=== PATIENT | female | born 1985 | race Caucasian/White ===

== ENCOUNTER 2017-01-25 15:24 | Inpatient (IN) | payer OTHER ==
[2017-01-25 16:53] VITALS: BMI 26.9
--- NOTE | 2017-01-25 17:32 | HP ---
COWS - Scale Resting Pulse: 0= [place] 80 or Below Sweatin= Chills/Flushing Restless Observation: 3= Extraneous Movement Pupil Size: 0= Normal to Room Light Bone or Joint Aches: 4=Acute Joint/Muscle Pain Runny Nose/ Eye Tearin= Runny Nose/Eyes GI Upset > 30mins: 2= Nausea/Diarrhea Tremor Observation: 1= Tremor [place], Not Seen Yawning Observation: 1= 1-2x During Session Anxiety or Irritability: 2=Irritable/Anxious Goose Flesh Skin: 0=Smooth Skin COWS Score: 16 Admission [facility] Chief Complaint: OPIATE WITHDRAWAL SX Allergies/Adverse Reactions: Allergies Allergy/AdvReac Type Severity Reaction Status Date / Time sulfamethoxazole Allergy Severe Rash Verified 01/25/17 16:51 [From Bactrim] trimethoprim [From Bactrim] Allergy Severe Rash Verified 01/25/17 16:51 History of Present Illness: 31 Y/O H/FEMALE WITH A HX OF PERCOCET DEPENDENCE SEEKING DETOX TX. PT STATES IN THE BEGINING IT WAS RX BUT NOW SHE USES STREET OPIATES. Exam Limitations: No Limitations - Ebola screening Have you traveled outside of the country in the last 21 days: No Have you had contact with anyone from an Ebola affected area: No Have you been sick,other than usual withdrawal symptoms: No - Review of Systems Constitutional: Chills, Night Sweats, Changes in sleep EENT: reports: Blurred Vision, Tearing, Nose Congestion Respiratory: reports: Shortness of Breath (HX ASTHMA), Wheezing Cardiac: reports: No Symptoms Reported GI: reports: Diarrhea, Nausea, Vomiting : reports: No Symptoms Reported Musculoskeletal: reports: Back Pain, Joint Pain, Muscle Pain Integumentary: reports: No Symptoms Reported Neuro: reports: Headache, Dizziness Endocrine: reports: No Symptoms Reported Hematology: reports: No Symptoms Reported Psychiatric: reports: Orientated x3, Anxious, Depressed Other Systems: Reviewed and Negative Patient History - Patient Medical History Hx Anemia: No Hx Asthma: Yes (Pt is on MDI.) Hx Chronic Obstructive Pulmonary Disease (COPD): No Hx Cancer: No Hx Cardiac Disorders: No Hx Congestive Heart Failure: No Hx Hypertension: No Hx Hypercholesterolemia: No Hx Pacemaker: No HX Cerebrovascular Accident: No Hx Seizures: No Hx Dementia: No Hx Diabetes: No Hx Gastrointestinal Disorders: No Hx Liver Disease: No Hx Genitourinary Disorders: No Hx Sexually Transmitted Disorders: No Hx Renal Disease (ESRD): No Hx Thyroid Disease: No Hx Human Immunodeficiency Virus (HIV): No (LAST NEGATIVE 2014) Hx Hepatitis C: No Hx Depression: Yes ([facility] PSYCH EVAL) Hx Suicide Attempt: No Hx Bipolar Disorder: No Hx Schizophrenia: No - Patient Surgical History Past Surgical History: No Hx Neurologic Surgery: No Hx Cataract Extraction: No Hx Cardiac Surgery: No Hx Lung Surgery: No Hx Breast Surgery: No Hx Breast Biopsy: No Hx Abdominal Surgery: No Hx Appendectomy: No Hx Cholecystectomy: No Hx Genitourinary Surgery: No Hx Section: No Hx Orthopedic Surgery: No Hx Hysterectomy: No Anesthesia Reaction: No - PPD History Previous Implant?: Yes Documented Results: Negative w/o proof Implanted On Prior [facility] Admission?: Yes Date: 12/22/15 PPD to be Administered?: Yes - Reproductive History Patient is a Female of Child Bearing Age (11 -55 yrs old): Yes Last Menstrual Period: 01/11/17 Patient : No - Smoking Cessation Smoking history: Current every day smoker Have you smoked in the past 12 months: Yes Aproximately how many cigarettes per day: 20 Hx Chewing Tobacco Use: No Initiated information on smoking cessation: Yes 'Breaking Loose' booklet given: 01/25/17 - Substance & Tx. History Hx Substance Use: Yes (PERCOCETS) Substance Use Type: Opiates Hx Substance Use Treatment: Yes (LAST TX AT [facility] DETOX) - Substances Abused PERCOCET Route: Oral Frequency: Daily Amount used: 25-30 10MG PILLS Age of first use: 27 Date of Last Use: 01/24/17 Family Disease History - Family Disease History Family Disease History: Diabetes: Grandparent (HTN), Other: Grandparent Admission Physical Exam BHS - Vital Signs Vital Signs: Vital Signs - 24 hr 01/25/17 16:51 Temperature 98.6 F Pulse Rate 77 Respiratory 18 Rate Blood Pressure 113/67 - Physical General Appearance: Yes: Moderate Distress, Irritable, Anxious HEENTM: Yes: EOMI, Normocephalic, LAILA, Pharynx Normal Respiratory: Yes: Chest Non-Tender, Lungs Clear, Normal Breath Sounds, No Respiratory Distress Neck: Yes: No masses,lesions,Nodules, Supple, Trachea in good position Breast: Yes: Breast Exam Deferred Cardiology: Yes: Regular Rhythm, Regular Rate, S1, S2 Abdominal: Yes: Normal Bowel Sounds, Non Tender, Flat Genitourinary: Yes: Other (N/C) Back: Yes: Within Normal Limits Musculoskeletal: Yes: full range of Motion, Gait Steady Extremities: Yes: Normal Range of Motion, Non-Tender Neurological: Yes: sample display preparer II-XII NML intact, Fully Oriented, Alert, Motor Strength 5/5 Integumentary: Yes: Dry, Warm Lymphatic: Yes: Within Normal Limits - Diagnostic (1) Asthma Current Visit: Yes Status: Acute Qualifiers: Asthma severity: mild Asthma persistence: unspecified Asthma complication type: uncomplicated Qualified Code(s): J45.909 - Unspecified asthma, uncomplicated (2) Low back pain Current Visit: Yes Status: Chronic Qualifiers: Chronicity: chronic Back pain laterality: midline Sciatica laterality: sciatica of right side (3) Nicotine dependence Current Visit: Yes Status: Acute Qualifiers: Nicotine product type: cigarettes Substance use status: in withdrawal Qualified Code(s): F17.213 - Nicotine dependence, cigarettes, with withdrawal (4) Opioid dependence with withdrawal Current Visit: Yes Status: Acute (5) Sedative dependence Current Visit: No Status: Inactive Cleared for Admission [facility] - Detox or Rehab [facility] Level of Care: Medically Managed Detox Regimen/Protocol: Methadone [facility] Breath Alcohol Content Breath Alcohol Content: 0 Urine Pregancy Test - Result Urine Test Results: Negative- NO Line Present Urine Drug Screen - Results Drug Screen Negative: No Urine Drug Screen Results: OXY-Oxycodone
[2017-01-25] MEDS ORDERED: MAGNESIUM HYDROX 2400MG/30ML ORAL SUSPENSION 30 ML CUP PO PRN (17:37)
[2017-01-25] MEDS ORDERED: guaiFENesin/D-METHORPHAN HB 10 ML UNIT-DOSE CUPS PO PRN (17:37)
[2017-01-25] MEDS ORDERED: NICOTINE POLACRILEX 4 MG GUM BC PRN (17:37)
[2017-01-25] MEDS ORDERED: LOPERAMIDE HCL 2 MG CAPSULE PO PRN (17:37)
[2017-01-25] MEDS ORDERED: IBUPROFEN 400 MG TABLET (FP) PO PRN (17:37)
[2017-01-25] MEDS ORDERED: MAGNESIUM CITRATE 300 ML BOTTLE PO PRN (17:37)
[2017-01-25] MEDS ORDERED: P-EPHED 60MG/TRIPROLIDI 2.5MG TABLET PO PRN (17:37)
[2017-01-25] MEDS ORDERED: ALBUTEROL SO4 18 GM HFA INHALER IH PRN (17:41)
[2017-01-25] MEDS ORDERED: METHADONE HCL 10 MG TABLET (FOR DETOX USE ONLY) PO ONE ×2 (18:30→23:00)
[2017-01-25] MEDS: diazePAM 5 MG TABLET PO PRN (19:19)
[2017-01-25] MEDS: NICOTINE 21 MG/24 HOURS TOPICAL PATCH TD SCH (19:23)
[2017-01-25] MEDS: MAG HYDROX/AL HYDROX/SIMETH 30 ML UNIT-DOSE CUP PO PRN (20:42)
[2017-01-25] MEDS: THIAMINE HCL 100 MG TABLET (FP) PO SCH (22:18)
[2017-01-25 23:45] LABS: URINE APPEARANCE SLCLOUDY; URINE BILIRUBIN NEGATIVE (NEGATIVE); URINE BLOOD NEGATIVE (NEGATIVE); URINE COLOR STRAW; URINE GLUCOSE (UA) NEGATIVE (NEGATIVE); URINE KETONE NEGATIVE (NEGATIVE); URINE NITRITE NEGATIVE (NEGATIVE); URINE PROTEIN NEGATIVE (NEGATIVE); URINE UROBILINOGEN NEGATIVE mg/dL (0.2-1.0)
[2017-01-26] MEDS: diazePAM 5 MG TABLET PO PRN ×4 (00:01→19:23)
[2017-01-26] MEDS ORDERED: METHADONE HCL 10 MG TABLET (FOR DETOX USE ONLY) PO ONE (10:00)
[2017-01-26 10:07] LABS: MCH 32.1 pg (25.7-33.7); MCHC 32.8 g/dl (32.0-36.0); MEAN CELL VOLUME 97.8 fl (80-96); MEAN PLT VOLUME 9.1 fl (7.5-11.1); PLATELET COUNT 274 K/MM3 (134-434); RDW 12.5 % (11.6-15.6); WHITE BLOOD COUNT 9.5 K/mm3 (4.0-10.0)
--- NOTE | 2017-01-26 10:18 | EKG ---
Test Reason : Blood Pressure : / mmHG Vent. Rate : 073 BPM Atrial Rate : 073 BPM P-R Int : 112 ms QRS Dur : 086 ms QT Int : 382 ms P-R-T Axes : -06 064 035 degrees QTc Int : 420 ms SINUS RHYTHM WITH FUSION COMPLEXES OTHERWISE NORMAL ECG NO PREVIOUS ECGS AVAILABLE Confirmed by SANDRA ALARCON MD ([id number]) on 01/26/2017 10:18:32 AM Referred By: Confirmed By:SANDRA ALARCON MD
[2017-01-26 10:32] LABS: URINE LEUK ESTERASE Negative (NEGATIVE)
[2017-01-26] MEDS: PRENATAL VITAMINS W/ FOLIC ACID TABLET (FP) PO SCH (10:35)
[2017-01-26] MEDS: NICOTINE 21 MG/24 HOURS TOPICAL PATCH TD SCH (10:36)
--- NOTE | 2017-01-26 10:36 | PN ---
BHS COWS - Scale Resting Pulse: 1= [place] 81-100 Sweatin= Chills/Flushing Restless Observation: 1= Difficult to Sit Still Pupil Size: 1= Pupils >than Normal Bone or Joint Aches: 2= Severe Diffuse Aches Runny Nose/ Eye Tearin= Nasal Congestion GI Upset > 30mins: 2= Nausea/Diarrhea Tremor Observation of Outstretched Hands: 1= Tremor [place], Not Seen Yawning Observation: 1= 1-2x During Session Anxiety or Irritability: 2=Irritable/Anxious Goose Flesh Skin: 3=Piloerection COWS Score: 16 BHS Progress Note (SOAP) Subjective: nausea, sweats, interrupted sleep, anxiety, tremors, body aches Objective: 01/26/17 10:35 Vital Signs - 24 hr 01/25/17 01/25/17 01/25/17 16:51 19:19 21:54 Temperature 98.6 F 98.8 F 98.2 F Pulse Rate 77 77 85 Respiratory 18 20 18 Rate Blood Pressure 113/67 133/73 132/83 01/26/17 01/26/17 03:30 06:00 Temperature 97.9 F Pulse Rate 70 Respiratory 18 18 Rate Blood Pressure 110/57 Laboratory Tests 01/25/17 01/26/17 23:30 07:00 WBC 9.5 RBC 3.98 Hgb 12.8 Hct 39.0 MCV 97.8 H MCH 32.1 MCHC 32.8 RDW 12.5 Plt Count 274 MPV 9.1 Urine Color Straw Urine Appearance Slcloudy Urine pH 5.0 Ur Specific [place] 1.011 Urine Protein Negative Urine Glucose (UA) Negative Urine Ketones Negative Urine Blood Negative Urine Nitrite Negative Urine Bilirubin Negative Urine Urobilinogen Negative labs still epnding Assessment: 01/26/17 10:35 withdrawal sx, macrocytosis - patient denies recent alcohol use, deydration, symptomatic relief of withdrwaal ordereddaniela
[2017-01-26 10:46] LABS: ALBUMIN 3.3 g/dl (3.4-5.0); ALK PHOS 56 U/L (45-117); ANION GAP 4 (8-16); BILIRUBIN,TOTAL 0.4 mg/dL (0.2-1.0); CO2 31 mmol/L (21-32); CREATININE 0.7 mg/dL (0.55-1.02); GLUCOSE,RANDOM 83 mg/dL (74-106); SGOT/AST 10 U/L (15-37); SGPT/ALT 24 U/L (12-78); TOT PROT 6.1 g/dl (6.4-8.2)
[2017-01-26 11:18] LABS: HIV 1 & 2 AB NEGATIVE; HIV 1 AGp24 NEGATIVE
[2017-01-26] MEDS: PANTOPRAZOLE 40 MG TABLET (FP) PO SCH (12:51)
[2017-01-26] MEDS: CYCLOBENZAPRINE HCL 5 MG TABLET PO SCH ×3 (12:51→22:15)
[2017-01-26] MEDS: NAPROXEN 500 MG TABLET (FP) PO SCH ×2 (12:52→22:15)
[2017-01-26] MEDS: cloNIDine HCL 0.1 MG TABLET PO SCH ×2 (12:52→22:15)
[2017-01-26 15:32] LABS: SICKLE CELL SCREEN NEGATIVE (NEGATIVE)
--- NOTE | 2017-01-26 16:10 | CONSULT ---
[facility] Psychiatric Consult - Data Date of interview: 01/26/17 Identifying data: Pt. is a 31 year old employed female with no children admitted to to detox for opioid dependence. This is patient's second admission to [facility] (admitted last year). Substance Abuse History: Opoid (percocet)- Reports using percocet since 2011, approximately 20 tablets daily. Pt. states she did not use percocet from 2014- 2015. States within the last 4 months her usage of percocet has increased to 40 tablets daily. Last used percocet 2 nights ago. Pt. reports smoking one pack of cigerettes since 16 years of age. Medical History: Pt. denies. Psychiatric History: Pt. denies Physical/Sexual Abuse/Trauma History: Pt. denies. Mental Status Exam - Mental Status Exam Alert and Oriented to: Time, Place, Person Cognitive Function: Fair Patient Appearance: Well Groomed Mood: Euthymic Affect: Appropriate Patient Behavior: Appropriate, Cooperative Speech Pattern: Clear, Appropriate Voice Loudness: Normal Thought Process: Goal Oriented Thought Disorder: Not Present Hallucinations: Denies Suicidal Ideation: Denies Homicidal Ideation: Denies Insight/Judgement: Poor (As per admission and poor judgement of heavy use of percocet.) Sleep: Poorly Appetite: Good Muscle strength/Tone: Normal Gait/Station: Normal Psychiatric Findings - Problem List ([place] 1, 2,3) (1) Opioid dependence with withdrawal Current Visit: Yes Status: Acute (2) Nicotine dependence Current Visit: Yes Status: Acute Qualifiers: Nicotine product type: cigarettes Substance use status: in withdrawal Qualified Code(s): F17.213 - Nicotine dependence, cigarettes, with withdrawal (3) Substance induced mood disorder Current Visit: Yes Status: Acute - Initial Treatment Plan Initial Treatment Plan: Pt. c/o insomnia. Review of pharmacy claims shows no prior script of trazodone. No documents of previous exposure to trazodone. Will start trazodone 50mg PO HS due to patient insisting that medication has been effective in the past. Pt. educated on benefits and side effects of medications. Will monitor patient at 50mg of trazodone for sleep.
[2017-01-26] MEDS: traZODone HCL 50 MG TABLET (FP) PO SCH (22:15)
[2017-01-26] MEDS: THIAMINE HCL 100 MG TABLET (FP) PO SCH (22:15)
[2017-01-27] MEDS: CYCLOBENZAPRINE HCL 5 MG TABLET PO SCH ×3 (06:04→22:15)
[2017-01-27] MEDS: diazePAM 5 MG TABLET PO PRN ×3 (06:04→19:24)
[2017-01-27] MEDS: MAG HYDROX/AL HYDROX/SIMETH 30 ML UNIT-DOSE CUP PO PRN (06:34)
[2017-01-27] MEDS ORDERED: METHADONE HCL 5 MG TABLET (FOR DETOX USE ONLY) PO ONE (10:00)
[2017-01-27] MEDS: NICOTINE 21 MG/24 HOURS TOPICAL PATCH TD SCH (10:19)
[2017-01-27] MEDS: PANTOPRAZOLE 40 MG TABLET (FP) PO SCH (10:19)
[2017-01-27] MEDS: cloNIDine HCL 0.1 MG TABLET PO SCH ×2 (10:19→22:15)
[2017-01-27] MEDS: PRENATAL VITAMINS W/ FOLIC ACID TABLET (FP) PO SCH (10:19)
[2017-01-27] MEDS: RANITIDINE HCL 150 MG TABLET (FP) PO SCH ×2 (10:20→22:15)
--- NOTE | 2017-01-27 11:30 | PN ---
BHS COWS - Scale Resting Pulse: 0= [place] 80 or Below Sweatin=Flushed/Facial Moisture Restless Observation: 1= Difficult to Sit Still Pupil Size: 0= Normal to Room Light Bone or Joint Aches: 2= Severe Diffuse Aches Runny Nose/ Eye Tearin= Nasal Congestion GI Upset > 30mins: 2= Nausea/Diarrhea Tremor Observation of Outstretched Hands: 2= Slight Tremor Visible Yawning Observation: 1= 1-2x During Session Anxiety or Irritability: 2=Irritable/Anxious Goose Flesh Skin: 0=Smooth Skin COWS Score: 13 BHS Progress Note (SOAP) Subjective: shakes sweats upset stomach agitation irritable Objective: 01/27/17 11:29 Vital Signs Temperature 98.2 F 01/27/17 10:00 Pulse Rate 80 01/27/17 10:00 Respiratory Rate 18 01/27/17 10:00 Blood Pressure 110/60 01/27/17 10:00 O2 Sat by Pulse Oximetry (%) Laboratory Tests 01/25/17 01/26/17 01/26/17 23:30 07:00 07:00 WBC 9.5 RBC 3.98 Hgb 12.8 Hct 39.0 MCV 97.8 H MCH 32.1 MCHC 32.8 RDW 12.5 Plt Count 274 MPV 9.1 Sickle Cell Screen Negative Sodium Potassium Chloride Carbon Dioxide Anion Gap BUN Creatinine Creat Clearance w eGFR Random Glucose Calcium Total Bilirubin AST ALT Alkaline Phosphatase Total Protein Albumin Urine Color Straw Urine Appearance Slcloudy Urine pH 5.0 Ur Specific [place] 1.011 Urine Protein Negative Urine Glucose (UA) Negative Urine Ketones Negative Urine Blood Negative Urine Nitrite Negative Urine Bilirubin Negative Urine Urobilinogen Negative Ur Leukocyte Esterase Negative RPR Titer HIV 1&2 Antibody Screen Negative HIV P24 Antigen Negative 01/26/17 01/26/17 07:00 07:00 WBC RBC Hgb Hct MCV MCH MCHC RDW Plt Count MPV Sickle Cell Screen Sodium 138 Potassium 4.5 Chloride 103 Carbon Dioxide 31 D Anion Gap 4 L BUN 11 Creatinine 0.7 Creat Clearance w eGFR > 60 Random Glucose 83 Calcium 8.0 L Total Bilirubin 0.4 AST 10 L D ALT 24 Alkaline Phosphatase 56 Total Protein 6.1 L D Albumin 3.3 L D Urine Color Urine Appearance Urine pH Ur Specific [place] Urine Protein Urine Glucose (UA) Urine Ketones Urine Blood Urine Nitrite Urine Bilirubin Urine Urobilinogen Ur Leukocyte Esterase RPR Titer Nonreactive HIV 1&2 Antibody Screen HIV P24 Antigen aaox3 ambulating no acute distress Assessment: 01/27/17 11:29 withdrawal sx Plan: continue detox increase fluids MOM/mylanta prn zantac bid d/c naproxen
[2017-01-27] MEDS: ARTIFICIAL TEARS (POLYVINYL ALCOHOL 1.4%) OPTH DROPS OU PRN (16:37)
--- NOTE | 2017-01-27 18:58 | PN ---
[facility] Progress Note Note: Psychiatry Attending's note : Case discussed with [employer] [employer]. Patient seen.Doing well.Benign hospital course. Unremarkable mental status.Improved sleep on trazodone 50 mg/hs. I agree with psychiatric findings and treatment plan.
[2017-01-27] MEDS: THIAMINE HCL 100 MG TABLET (FP) PO SCH (22:15)
[2017-01-27] MEDS: traZODone HCL 50 MG TABLET (FP) PO SCH (22:15)
[2017-01-28] MEDS: diazePAM 5 MG TABLET PO PRN ×3 (03:12→14:45)
[2017-01-28] MEDS: CYCLOBENZAPRINE HCL 5 MG TABLET PO SCH ×3 (05:52→22:18)
[2017-01-28] MEDS ORDERED: METHADONE HCL 5 MG TABLET (FOR DETOX USE ONLY) PO ONE (10:00)
[2017-01-28] MEDS: RANITIDINE HCL 150 MG TABLET (FP) PO SCH ×2 (10:31→22:17)
[2017-01-28] MEDS: PRENATAL VITAMINS W/ FOLIC ACID TABLET (FP) PO SCH (10:31)
[2017-01-28] MEDS: cloNIDine HCL 0.1 MG TABLET PO SCH ×2 (10:32→22:17)
[2017-01-28] MEDS: NICOTINE 21 MG/24 HOURS TOPICAL PATCH TD SCH (10:32)
[2017-01-28] MEDS: ARTIFICIAL TEARS (POLYVINYL ALCOHOL 1.4%) OPTH DROPS OU PRN (10:33)
[2017-01-28] MEDS: AZITHROMYCIN 250 MG TABLET PO SCH (11:10)
--- NOTE | 2017-01-28 11:43 | PN ---
BHS Progress Note (SOAP) Subjective: sore throat sweats irritable Objective: 01/28/17 11:40 Vital Signs Temperature 97.7 F 01/28/17 09:22 Pulse Rate 90 01/28/17 09:22 Respiratory Rate 18 01/28/17 09:22 Blood Pressure 117/74 01/28/17 09:22 O2 Sat by Pulse Oximetry (%) aaox3 ambulating no acute distress Assessment: 01/28/17 11:42 withdrawal sx Plan: continue detox increase fluids zithromax 500mg x7 days throat lozenges warm water with salt gargles
[2017-01-28] MEDS: SIMETHICONE 80 MG TAB.CHEW (FP) PO PRN ×2 (12:31→17:38)
[2017-01-28] MEDS: ACETAMINOPHEN 325 MG TABLET (FP) PO PRN ×3 (12:32→22:19)
[2017-01-28] MEDS: THIAMINE HCL 100 MG TABLET (FP) PO SCH (22:17)
[2017-01-28] MEDS: traZODone HCL 50 MG TABLET (FP) PO SCH (22:18)
[2017-01-29] MEDS: MENTHOL/PHENOL 1 EACH UD MM PRN ×3 (00:07→23:13)
[2017-01-29] MEDS: ACETAMINOPHEN 325 MG TABLET (FP) PO PRN ×2 (03:24→08:36)
[2017-01-29] MEDS: CYCLOBENZAPRINE HCL 5 MG TABLET PO SCH ×3 (05:17→22:04)
[2017-01-29] MEDS ORDERED: METHADONE HCL 10 MG TABLET (FOR DETOX USE ONLY) PO ONE (10:00)
--- NOTE | 2017-01-29 10:09 | PN ---
BHS Progress Note (SOAP) Subjective: Still c/o sore throat,sweating,interrupted sleep,restless Objective: 01/29/17 10:04 Vital Signs - 8 hr 01/29/17 01/29/17 01/29/17 03:30 06:27 09:52 Temperature 98.2 F 97.9 F Pulse Rate 76 82 Respiratory 18 18 16 Rate Blood Pressure 122/68 135/69 Laboratory Last Values WBC 9.5 K/mm3 (4.0-10.0) 01/26/17 07:00 RBC 3.98 M/mm3 (3.60-5.2) 01/26/17 07:00 Hgb 12.8 GM/dL (10.7-15.3) 01/26/17 07:00 Hct 39.0 % (32.4-45.2) 01/26/17 07:00 MCV 97.8 fl (80-96) H 01/26/17 07:00 MCH 32.1 pg (25.7-33.7) 01/26/17 07:00 MCHC 32.8 g/dl (32.0-36.0) 01/26/17 07:00 RDW 12.5 % (11.6-15.6) 01/26/17 07:00 Plt Count 274 K/MM3 (134-434) 01/26/17 07:00 MPV 9.1 fl (7.5-11.1) 01/26/17 07:00 Sickle Cell Screen Negative (NEGATIVE) 01/26/17 07:00 Sodium 138 mmol/L (136-145) 01/26/17 07:00 Potassium 4.5 mmol/L (3.5-5.1) 01/26/17 07:00 Chloride 103 mmol/L (98-107) 01/26/17 07:00 Carbon Dioxide 31 mmol/L (21-32) D 01/26/17 07:00 Anion Gap 4 (8-16) L 01/26/17 07:00 BUN 11 mg/dL (7-18) 01/26/17 07:00 Creatinine 0.7 mg/dL (0.55-1.02) 01/26/17 07:00 Creat Clearance w eGFR > 60 (>60) 01/26/17 07:00 Random Glucose 83 mg/dL (74-106) 01/26/17 07:00 Calcium 8.0 mg/dL (8.5-10.1) L 01/26/17 07:00 Total Bilirubin 0.4 mg/dL (0.2-1.0) 01/26/17 07:00 AST 10 U/L (15-37) L D 01/26/17 07:00 ALT 24 U/L (12-78) 01/26/17 07:00 Alkaline Phosphatase 56 U/L (45-117) 01/26/17 07:00 Total Protein 6.1 g/dl (6.4-8.2) L D 01/26/17 07:00 Albumin 3.3 g/dl (3.4-5.0) L D 01/26/17 07:00 Urine Color Straw 01/25/17 23:30 Urine Appearance Slcloudy 01/25/17 23:30 Urine pH 5.0 (5.0-8.0) 01/25/17 23:30 Ur Specific [place] 1.011 (1.001-1.035) 01/25/17 23:30 Urine Protein Negative (NEGATIVE) 01/25/17 23:30 Urine Glucose (UA) Negative (NEGATIVE) 01/25/17 23:30 Urine Ketones Negative (NEGATIVE) 01/25/17 23:30 Urine Blood Negative (NEGATIVE) 01/25/17 23:30 Urine Nitrite Negative (NEGATIVE) 01/25/17 23:30 Urine Bilirubin Negative (NEGATIVE) 01/25/17 23:30 Urine Urobilinogen Negative mg/dL (0.2-1.0) 01/25/17 23:30 Ur Leukocyte Esterase Negative (NEGATIVE) 01/25/17 23:30 RPR Titer Nonreactive (NONREACTIVE) 01/26/17 07:00 HIV 1&2 Antibody Screen Negative 01/26/17 07:00 HIV P24 Antigen Negative 01/26/17 07:00 labs noted Assessment: 01/29/17 10:08 Withdrawal sx. Plan: Continue detox
[2017-01-29] MEDS: AZITHROMYCIN 250 MG TABLET PO SCH (10:26)
[2017-01-29] MEDS: PRENATAL VITAMINS W/ FOLIC ACID TABLET (FP) PO SCH (10:26)
[2017-01-29] MEDS: RANITIDINE HCL 150 MG TABLET (FP) PO SCH ×2 (10:26→22:04)
[2017-01-29] MEDS: cloNIDine HCL 0.1 MG TABLET PO SCH ×2 (10:26→22:07)
[2017-01-29] MEDS: NICOTINE 21 MG/24 HOURS TOPICAL PATCH TD SCH (10:27)
[2017-01-29] MEDS: IBUPROFEN 600 MG TABLET (FP) PO PRN ×3 (10:30→22:04)
[2017-01-29] MEDS: ARTIFICIAL TEARS (POLYVINYL ALCOHOL 1.4%) OPTH DROPS OU PRN (16:40)
--- NOTE | 2017-01-29 17:39 | PN ---
S Progress Note Note: Spoke to patient bedside. Pt. reports favorable response to trazodone 50mg for insomnia. Prescription of trazodone 50mg writtern for patient for 30 days.
[2017-01-29] MEDS: traZODone HCL 50 MG TABLET (FP) PO SCH (22:04)
[2017-01-29] MEDS: THIAMINE HCL 100 MG TABLET (FP) PO SCH (22:08)
[2017-01-30] MEDS: IBUPROFEN 600 MG TABLET (FP) PO PRN ×2 (02:54→08:29)
[2017-01-30] MEDS: MENTHOL/PHENOL 1 EACH UD MM PRN (02:56)
[2017-01-30] MEDS: CYCLOBENZAPRINE HCL 5 MG TABLET PO SCH (05:38)
[2017-01-30] MEDS ORDERED: METHADONE HCL 5 MG TABLET (FOR DETOX USE ONLY) PO ONE (06:00)
[2017-01-30 10:08] VITALS: BP 126/73; PULSE 130; TEMP 99
[2017-01-30] MEDS: cloNIDine HCL 0.1 MG TABLET PO SCH (10:16)
[2017-01-30] MEDS: PRENATAL VITAMINS W/ FOLIC ACID TABLET (FP) PO SCH (10:16)
[2017-01-30] MEDS: AZITHROMYCIN 250 MG TABLET PO SCH (10:16)
[2017-01-30] MEDS: RANITIDINE HCL 150 MG TABLET (FP) PO SCH (10:16)
[2017-01-30] MEDS: NICOTINE 21 MG/24 HOURS TOPICAL PATCH TD SCH (10:17)
--- NOTE | 2017-01-30 10:45 | DS ---
[facility] Detox Discharge Summary Admission Date: 01/25/17 Discharge Date: 01/30/17 - History Present History: Opioid Dependence Pertinent Past History: Asthma - Physical Exam Results Vital Signs: Vital Signs Temperature 99.0 F 01/30/17 10:00 Pulse Rate 93 01/30/17 10:00 Respiratory Rate 18 01/30/17 10:00 Blood Pressure 126/73 01/30/17 10:00 O2 Sat by Pulse Oximetry (%) Pertinent Admission Physical Exam Findings: Withdrawal sx. Laboratory Last Values WBC 9.5 K/mm3 (4.0-10.0) 01/26/17 07:00 RBC 3.98 M/mm3 (3.60-5.2) 01/26/17 07:00 Hgb 12.8 GM/dL (10.7-15.3) 01/26/17 07:00 Hct 39.0 % (32.4-45.2) 01/26/17 07:00 MCV 97.8 fl (80-96) H 01/26/17 07:00 MCH 32.1 pg (25.7-33.7) 01/26/17 07:00 MCHC 32.8 g/dl (32.0-36.0) 01/26/17 07:00 RDW 12.5 % (11.6-15.6) 01/26/17 07:00 Plt Count 274 K/MM3 (134-434) 01/26/17 07:00 MPV 9.1 fl (7.5-11.1) 01/26/17 07:00 Sickle Cell Screen Negative (NEGATIVE) 01/26/17 07:00 Sodium 138 mmol/L (136-145) 01/26/17 07:00 Potassium 4.5 mmol/L (3.5-5.1) 01/26/17 07:00 Chloride 103 mmol/L (98-107) 01/26/17 07:00 Carbon Dioxide 31 mmol/L (21-32) D 01/26/17 07:00 Anion Gap 4 (8-16) L 01/26/17 07:00 BUN 11 mg/dL (7-18) 01/26/17 07:00 Creatinine 0.7 mg/dL (0.55-1.02) 01/26/17 07:00 Creat Clearance w eGFR > 60 (>60) 01/26/17 07:00 Random Glucose 83 mg/dL (74-106) 01/26/17 07:00 Calcium 8.0 mg/dL (8.5-10.1) L 01/26/17 07:00 Total Bilirubin 0.4 mg/dL (0.2-1.0) 01/26/17 07:00 AST 10 U/L (15-37) L D 01/26/17 07:00 ALT 24 U/L (12-78) 01/26/17 07:00 Alkaline Phosphatase 56 U/L (45-117) 01/26/17 07:00 Total Protein 6.1 g/dl (6.4-8.2) L D 01/26/17 07:00 Albumin 3.3 g/dl (3.4-5.0) L D 01/26/17 07:00 Urine Color Straw 01/25/17 23:30 Urine Appearance Slcloudy 01/25/17 23:30 Urine pH 5.0 (5.0-8.0) 01/25/17 23:30 Ur Specific [place] 1.011 (1.001-1.035) 01/25/17 23:30 Urine Protein Negative (NEGATIVE) 01/25/17 23:30 Urine Glucose (UA) Negative (NEGATIVE) 01/25/17 23:30 Urine Ketones Negative (NEGATIVE) 01/25/17 23:30 Urine Blood Negative (NEGATIVE) 01/25/17 23:30 Urine Nitrite Negative (NEGATIVE) 01/25/17 23:30 Urine Bilirubin Negative (NEGATIVE) 01/25/17 23:30 Urine Urobilinogen Negative mg/dL (0.2-1.0) 01/25/17 23:30 Ur Leukocyte Esterase Negative (NEGATIVE) 01/25/17 23:30 RPR Titer Nonreactive (NONREACTIVE) 01/26/17 07:00 HIV 1&2 Antibody Screen Negative 01/26/17 07:00 HIV P24 Antigen Negative 01/26/17 07:00 labs noted - Treatment Hospital Course: Detox Protocol Followed, Detoxed Safely, Responded well, Discharged Condition Good (Pt. has sore throat with exudate. She's on Zithromax for tonsillitis), Rehab Referral Accepted Patient has Accepted a Rehab Referral to: [facility] - Medication Discharge Medications: Ambulatory Orders Albuterol Sulfate Inhaler - [Ventolin HFA Inhaler -] 2 inh PO Q4H PRN 12/20/15 Trazodone HCl [Desyrel -] 50 mg PO HS #30 tablet 01/29/17 Trazodone HCl [Desyrel -] 50 mg PO HS #30 tablet 01/29/17 - Diagnosis (1) Opioid dependence with withdrawal Current Visit: Yes Status: Chronic (2) Acute tonsillitis Current Visit: Yes Status: Acute Qualifiers: Pharyngitis/tonsillitis etiology: unspecified etiology Qualified Code(s): J03.90 - Acute tonsillitis, unspecified - AMA Did Patient Leave Against Medical Advice: No
== END 2017-01-30 11:25 | disposition other institution (70) | DRG 897 ==
LOC: YASAS 15:24 → Y6N 18:04
PROVIDERS: ADMIT Internal Medicine; ATTEND Internal Medicine
PROC: HZ2ZZZZ Detoxification Services for Substance Abuse Treatment (ICD-10-PCS; principal; 2017-01-25)
DX: F11.23 Opioid dependence with withdrawal (principal); F17.210 Nicotine dependence, cigarettes, uncomplicated; F19.24 Other psychoactive substance dependence with psychoactive substance-induced mood disorder; F41.9 Anxiety disorder, unspecified; M54.41 Lumbago with sciatica, right side; G89.29 Other chronic pain; J03.90 Acute tonsillitis, unspecified
CPT/HCPCS: 36415; 80053; 81003; 85027; 85660; 86593; 87389; 93005; 93010

== ENCOUNTER 2017-01-30 12:51 | Inpatient (IN) | payer OTHER ==
[2017-01-30 13:26] VITALS: BMI 29.5
[2017-01-30] MEDS ORDERED: P-EPHED 60MG/TRIPROLIDI 2.5MG TABLET PO PRN (13:44)
[2017-01-30] MEDS ORDERED: MAGNESIUM CITRATE 300 ML BOTTLE PO PRN (13:44)
[2017-01-30] MEDS ORDERED: LOPERAMIDE HCL 2 MG CAPSULE PO PRN (13:44)
[2017-01-30] MEDS ORDERED: NICOTINE POLACRILEX 2 MG GUM BUC PRN (13:44)
[2017-01-30] MEDS ORDERED: MAGNESIUM HYDROX 2400MG/30ML ORAL SUSPENSION 30 ML CUP PO PRN (13:44)
[2017-01-30] MEDS ORDERED: ACETAMINOPHEN 325 MG TABLET (FP) PO PRN (13:44)
[2017-01-30] MEDS ORDERED: MENTHOL/PHENOL 1 EACH UD MM PRN (13:44)
[2017-01-30] MEDS ORDERED: MAG HYDROX/AL HYDROX/SIMETH 30 ML UNIT-DOSE CUP PO PRN (13:44)
[2017-01-30] MEDS ORDERED: guaiFENesin/D-METHORPHAN HB 10 ML UNIT-DOSE CUPS PO PRN (13:44)
[2017-01-30] MEDS ORDERED: ALBUTEROL SO4 18 GM HFA INHALER IH PRN (13:45)
--- NOTE | 2017-01-30 13:51 | HP ---
[facility] Rehab Assess/Revision - Admission History Admitted to Rehab from: [facility] Date of Admission to Rehab: 01/30/17 - Vital signs Vital Signs: Vital Signs Period Temp Pulse Resp BP Sys/Campbell Pulse Ox Last 24 Hr 99.2 F-99.2 F 119-119 20-20 101-101/57-57 - Findings Detox History & Physical reviewed: Yes Concur with findings: Yes Comments/Additional Findings: Pt. is on Zithromax for acute tonsillitis Inpatient Rehab Admission - Initial Determination Are CD services needed?: Yes Free of communicable disease: Yes Not in need of hospitalization: Yes - Rehab Admission Criteria Poor recovery environment: Yes Comorbidities: Yes Lacks judgement: Yes Patient is meeting Inpatient Rehab admission criteria:: Yes
[2017-01-30] MEDS: IBUPROFEN 400 MG TABLET (FP) PO PRN (17:05)
[2017-01-30] MEDS: traZODone HCL 50 MG TABLET (FP) PO SCH (21:57)
[2017-01-30] MEDS: THIAMINE HCL 100 MG TABLET (FP) PO SCH (21:57)
[2017-01-31] MEDS: IBUPROFEN 400 MG TABLET (FP) PO PRN ×3 (00:46→17:16)
[2017-01-31] MEDS: PRENATAL VITAMINS W/ FOLIC ACID TABLET (FP) PO SCH (09:56)
[2017-01-31] MEDS: NICOTINE 21 MG/24 HOURS TOPICAL PATCH TD SCH (09:56)
[2017-01-31] MEDS: AZITHROMYCIN 250 MG TABLET PO SCH (09:56)
[2017-01-31] MEDS: traZODone HCL 50 MG TABLET (FP) PO SCH (22:06)
[2017-01-31] MEDS: THIAMINE HCL 100 MG TABLET (FP) PO SCH (22:06)
[2017-02-01] MEDS: IBUPROFEN 400 MG TABLET (FP) PO PRN (06:23)
--- NOTE | 2017-02-01 06:50 | HP ---
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 Smokes cigarettes 1ppd Psychiatric History: Denies history of previous psychiatric treatment. Physical/Sexual Abuse/Trauma History: Denies history of verbal. physical or sexual abuse as well as DV relationship Additional Comment: Denies criminal history Vital Signs: Vital Signs - 24 hr 01/31/17 01/31/17 02/01/17 07:22 10:00 00:30 Temperature 98.5 F 98.6 F Pulse Rate 101 H 128 H Respiratory 18 18 18 Rate Blood Pressure 90/57 117/70 02/01/17 03:30 Temperature Pulse Rate Respiratory 18 Rate Blood Pressure Allergies/Adverse Reactions: Allergies Allergy/AdvReac Type Severity Reaction Status Date / Time sulfamethoxazole Allergy Severe Rash Verified 01/25/17 16:51 [From Bactrim] trimethoprim [From Bactrim] Allergy Severe Rash Verified 01/25/17 16:51 Date of last physical exam: 01/25/17 Concur with the findings of this exam: Yes - Substance Abuse/Tx History Hx Alcohol Use: No Hx Substance Use: Yes Substance Use Type: Opiates (Started using percocet at age 27, consumes 25-30x 10 mg daily. Last used on 01/24/17) Hx Substance Use Treatment: Yes (2 previous inpt detox admission @ [facility]. First inpt rehab) Mental Status Exam - Mental Status Exam Alert and Oriented to: Time, Place, Person Cognitive Function: Fair Patient Appearance: Well Groomed Mood: Depressed, Anxious Affect: Appropriate Patient Behavior: Cooperative Speech Pattern: Clear Voice Loudness: Normal Thought Process: Intact, Goal Oriented Hallucinations: Denies Suicidal Ideation: Denies Homicidal Ideation: Denies Insight/Judgement: Fair Sleep: Poorly Appetite: Poor Muscle strength/Tone: Normal Gait/Station: Normal Psychiatric Findings - Problem List ([place] 1, 2,3) (1) Opioid dependence Current Visit: Yes Status: Acute (2) Nicotine dependence Current Visit: No Status: Acute Qualifiers: Nicotine product type: cigarettes Substance use status: uncomplicated Qualified Code(s): F17.210 - Nicotine dependence, cigarettes, uncomplicated (3) Substance induced mood disorder Current Visit: Yes Status: Acute (4) Substance-induced sleep disorder Current Visit: Yes Status: Acute (5) Asthma Current Visit: No Status: Acute Qualifiers: Asthma severity: mild Asthma persistence: unspecified Asthma complication type: uncomplicated Qualified Code(s): J45.909 - Unspecified asthma, uncomplicated (6) Low back pain Current Visit: No Status: Chronic Qualifiers: Chronicity: chronic Back pain laterality: midline Sciatica laterality: sciatica of right side - Initial Treatment Plan Initial Treatment Plan: 1) Startr Belsomra 10 mg po HS prn for insomnia. 2) Monitor progress
[2017-02-01] MEDS: NICOTINE 21 MG/24 HOURS TOPICAL PATCH TD SCH (10:03)
[2017-02-01] MEDS: AZITHROMYCIN 250 MG TABLET PO SCH (10:03)
[2017-02-01] MEDS: PRENATAL VITAMINS W/ FOLIC ACID TABLET (FP) PO SCH (10:03)
--- NOTE | 2017-02-01 11:38 | PN ---
BHS Progress Note (SOAP) Subjective: c/o painful throat with white patches still after antibiotics have been tstarted , Objective: 02/01/17 11:36 Vital Signs - 24 hr 02/01/17 02/01/17 02/01/17 00:30 03:30 06:49 Temperature 98.4 F Pulse Rate 92 H Respiratory 18 18 20 Rate Blood Pressure 116/69 labs reveiwed, hiv neg,abnorml lfts Assessment: 02/01/17 11:37 tonsillitis - cont anitbioitcs, throat swab gfor c and s, naprosyn atc, w protonix, d/c motirin mm swish and swallow, bedrest, fluids.
[2017-02-01] MEDS: PANTOPRAZOLE 40 MG TABLET (FP) PO SCH (13:38)
[2017-02-01] MEDS: MAG HYDROX/ALH/SMC/DPHA/LIDO 240 ML MOUTHWASH MM SCH ×2 (14:33→17:51)
[2017-02-01] MEDS: NAPROXEN 500 MG TABLET (FP) PO SCH ×2 (14:34→21:55)
[2017-02-01] MEDS: THIAMINE HCL 100 MG TABLET (FP) PO SCH (21:55)
[2017-02-01] MEDS: SUVOREXANT 10 MG TABLET PO PRN (21:56)
[2017-02-02] MEDS: MAG HYDROX/ALH/SMC/DPHA/LIDO 240 ML MOUTHWASH MM SCH ×5 (06:33→23:54)
[2017-02-02] MEDS: PRENATAL VITAMINS W/ FOLIC ACID TABLET (FP) PO SCH (10:01)
[2017-02-02] MEDS: NICOTINE 21 MG/24 HOURS TOPICAL PATCH TD SCH (10:02)
[2017-02-02] MEDS: NAPROXEN 500 MG TABLET (FP) PO SCH ×2 (10:02→21:35)
[2017-02-02] MEDS: PANTOPRAZOLE 40 MG TABLET (FP) PO SCH (10:02)
[2017-02-02] MEDS: AZITHROMYCIN 250 MG TABLET PO SCH (10:02)
[2017-02-02] MEDS: hydrOXYzine PAMOATE 50 MG CAPSULE (FP) PO PRN ×2 (14:23→20:01)
--- NOTE | 2017-02-02 14:29 | PN ---
Psychiatric Progress Note Vital Signs: Vital Signs Period Temp Pulse Resp BP Sys/Campbell Pulse Ox Last 24 Hr 97.6 F 83 18-20 124/71 Date of Session: 02/02/17 Chief Complaint:: Anxiety HPI: Patient addressing Opoid Depedence comorbid with Nicotine Dependence, Substance-Induced Mood Disorder and Substance-Induced Sleep Disorder ROS: Asthma, LBP Current Medications: Active Medications Generic Name Dose Route Start Last Admin Trade Name Freq PRN Reason Stop Dose Admin Acetaminophen 650 mg 01/30/17 13:44 Tylenol - PO Q4H PRN FEVER OR PAIN Al Hydroxide/Mg Hydroxide 30 ml 01/30/17 13:44 Mylanta Oral Suspension - PO Q6H PRN DYSPEPSIA Albuterol Sulfate 0 puff 01/30/17 13:45 Ventolin Hfa Inhaler - IH Q4H PRN ASTHMA Azithromycin 500 mg 01/31/17 10:00 02/02/17 10:02 Zithromax - PO 02/04/17 10:01 500 mg DAILY LYLY Administration Eucalyptus/Menthol/Phenol/Sorbitol 1 each 01/30/17 13:44 02/01/17 06:26 Cepastat Lozenge - MM 1 each Q4H PRN Administration SORE THROAT Guaifenesin 10 ml 01/30/17 13:44 Robitussin Dm - PO Q6H PRN COUGH Hydroxyzine Pamoate 50 mg 02/02/17 14:16 Vistaril - PO Q4H PRN ANXIETY Lidocaine/Aluminum/Magnesium/Simeth 5 ml 02/01/17 12:30 02/02/17 12:49 Magic Mouthwash *Sjr Formula* - MM 5 ml Q6HPO LYLY Administration Loperamide HCl 4 mg 01/30/17 13:44 Imodium - PO Q6H PRN DIARRHEA Magnesium Citrate 300 ml 01/30/17 13:44 Citroma - PO Q48H PRN CONSTIPATION Magnesium Hydroxide 30 ml 01/30/17 13:44 Milk Of Magnesia - PO DAILY PRN CONSTIPATION Naproxen 500 mg 02/01/17 12:27 02/02/17 10:02 Naprosyn - PO 500 mg BID LYLY Administration Nicotine 21 mg 01/31/17 10:00 02/02/17 10:02 Nicoderm Patch - TD Not Given DAILY LYLY Nicotine Polacrilex 2 mg 01/30/17 13:44 Nicorette Gum - BUC Q2H PRN NICOTINE REPLACEMENT RX Pantoprazole Sodium 40 mg 02/01/17 12:28 02/02/17 10:02 Protonix - PO 40 mg DAILY LYLY Administration Multivit/Folic Acid/Iron 1 tab 01/31/17 10:00 02/02/17 10:01 Vitamins (Sjr) - PO 1 tab DAILY LYLY Administration Pseudoephedrine/Triprolidine 1 combo 01/30/17 13:44 Actifed - PO TID PRN NASAL CONGESTION Thiamine HCl 100 mg 01/30/17 22:00 02/01/17 21:55 Vitamin B1 - PO 100 mg HS LYLY Administration Medication(s) Change(s): Start Vistaril 50 mg po Q 4hrs prn for anxiety Current Side Effect: No Lab tests ordered: Yes Lab tests reviewed: Yes Provider note:: Patient reports feeling very anxious and overwhelmed. 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 She said that she does know what family members and people at work expect from her. She was told that she would be prescribed Vistaril as needed for anxiety. She was provided a therapist name and number that she can call and set an appointment. Total face to face time:: 25 Mental Status Exam - Mental Status Exam Alert and Oriented to: Time, Place, Person Cognitive Function: Fair Patient Appearance: Well Groomed Mood: Anxious Affect: Appropriate Patient Behavior: Cooperative Speech Pattern: Clear Voice Loudness: Normal Thought Process: Intact, Goal Oriented Thought Disorder: Not Present Hallucinations: Denies Suicidal Ideation: Denies Homicidal Ideation: Denies Insight/Judgement: Fair Sleep: Fair Muscle strength/Tone: Normal Gait/Station: Normal Psychiatric Treatment Plan - Problem List (1) Opioid dependence Current Visit: Yes (2) Nicotine dependence Current Visit: No Qualifiers: Nicotine product type: cigarettes Substance use status: uncomplicated Qualified Code(s): F17.210 - Nicotine dependence, cigarettes, uncomplicated (3) Substance induced mood disorder Current Visit: Yes (4) Substance-induced sleep disorder Current Visit: Yes (5) Asthma Current Visit: No Qualifiers: Asthma severity: mild Asthma persistence: unspecified Asthma complication type: uncomplicated Qualified Code(s): J45.909 - Unspecified asthma, uncomplicated (6) Low back pain Current Visit: No Qualifiers: Chronicity: chronic Back pain laterality: midline Sciatica laterality: sciatica of right side Initial treatment plan: 1) Start Vistaril 50 mg po Q 4hrs prn for anxiety. Benefits vs Risks of medication discussed with patient and she asgreed to try it. 2) Monitor progress
[2017-02-02] MEDS: THIAMINE HCL 100 MG TABLET (FP) PO SCH (21:36)
[2017-02-02] MEDS: SUVOREXANT 10 MG TABLET PO PRN (21:37)
[2017-02-03] MEDS: MAG HYDROX/ALH/SMC/DPHA/LIDO 240 ML MOUTHWASH MM SCH ×4 (06:15→23:56)
[2017-02-03] MEDS: hydrOXYzine PAMOATE 50 MG CAPSULE (FP) PO PRN ×3 (08:18→21:27)
[2017-02-03] MEDS: NAPROXEN 500 MG TABLET (FP) PO SCH ×2 (10:02→21:26)
[2017-02-03] MEDS: PRENATAL VITAMINS W/ FOLIC ACID TABLET (FP) PO SCH (10:02)
[2017-02-03] MEDS: PANTOPRAZOLE 40 MG TABLET (FP) PO SCH (10:02)
[2017-02-03] MEDS: AZITHROMYCIN 250 MG TABLET PO SCH (10:02)
[2017-02-03] MEDS: NICOTINE 21 MG/24 HOURS TOPICAL PATCH TD SCH (10:02)
[2017-02-03] MEDS: SUVOREXANT 10 MG TABLET PO PRN (21:26)
[2017-02-03] MEDS: THIAMINE HCL 100 MG TABLET (FP) PO SCH (21:26)
[2017-02-04 06:55] VITALS: TEMP 98.3
[2017-02-04] MEDS: MAG HYDROX/ALH/SMC/DPHA/LIDO 240 ML MOUTHWASH MM SCH ×3 (07:06→17:57)
[2017-02-04] MEDS: PANTOPRAZOLE 40 MG TABLET (FP) PO SCH (09:56)
[2017-02-04] MEDS: hydrOXYzine PAMOATE 50 MG CAPSULE (FP) PO PRN ×3 (09:56→21:26)
[2017-02-04] MEDS: NICOTINE 21 MG/24 HOURS TOPICAL PATCH TD SCH (09:56)
[2017-02-04] MEDS: PRENATAL VITAMINS W/ FOLIC ACID TABLET (FP) PO SCH (09:56)
[2017-02-04] MEDS: AZITHROMYCIN 250 MG TABLET PO SCH (09:56)
[2017-02-04] MEDS: NAPROXEN 500 MG TABLET (FP) PO SCH ×2 (09:56→21:25)
--- NOTE | 2017-02-04 11:05 | PN ---
Psychiatric Progress Note Vital Signs: Vital Signs Period Temp Pulse Resp BP Sys/Campbell Pulse Ox Last 24 Hr 98.3 F 71 18-18 119/69 Date of Session: 02/04/17 Chief Complaint:: Discharge Note HPI: Patient addressing Opoid Dependence comorbid with Nicotine Dependence, Substance-induced Mood Disorder and Substance-induced Sleep Disorder ROS: Asthma, LBP were medically managed Current Medications: Active Medications Generic Name Dose Route Start Last Admin Trade Name Freq PRN Reason Stop Dose Admin Acetaminophen 650 mg 01/30/17 13:44 Tylenol - PO Q4H PRN FEVER OR PAIN Al Hydroxide/Mg Hydroxide 30 ml 01/30/17 13:44 Mylanta Oral Suspension - PO Q6H PRN DYSPEPSIA Albuterol Sulfate 0 puff 01/30/17 13:45 Ventolin Hfa Inhaler - IH Q4H PRN ASTHMA Eucalyptus/Menthol/Phenol/Sorbitol 1 each 01/30/17 13:44 02/01/17 06:26 Cepastat Lozenge - MM 1 each Q4H PRN Administration SORE THROAT Guaifenesin 10 ml 01/30/17 13:44 Robitussin Dm - PO Q6H PRN COUGH Hydroxyzine Pamoate 50 mg 02/02/17 14:16 02/04/17 09:56 Vistaril - PO 50 mg Q4H PRN Administration ANXIETY Lidocaine/Aluminum/Magnesium/Simeth 5 ml 02/01/17 12:30 02/04/17 07:06 Magic Mouthwash *Sjr Formula* - MM 5 ml Q6HPO LYLY Administration Loperamide HCl 4 mg 01/30/17 13:44 Imodium - PO Q6H PRN DIARRHEA Magnesium Citrate 300 ml 01/30/17 13:44 Citroma - PO Q48H PRN CONSTIPATION Magnesium Hydroxide 30 ml 01/30/17 13:44 Milk Of Magnesia - PO DAILY PRN CONSTIPATION Naproxen 500 mg 02/01/17 12:27 02/04/17 09:56 Naprosyn - PO 500 mg BID LYLY Administration Nicotine 21 mg 01/31/17 10:00 02/04/17 09:56 Nicoderm Patch - TD Not Given DAILY LYLY Nicotine Polacrilex 2 mg 01/30/17 13:44 Nicorette Gum - BUC Q2H PRN NICOTINE REPLACEMENT RX Pantoprazole Sodium 40 mg 02/01/17 12:28 02/04/17 09:56 Protonix - PO 40 mg DAILY LYLY Administration Multivit/Folic Acid/Iron 1 tab 01/31/17 10:00 02/04/17 09:56 Vitamins (Sjr) - PO 1 tab DAILY LYLY Administration Pseudoephedrine/Triprolidine 1 combo 01/30/17 13:44 Actifed - PO TID PRN NASAL CONGESTION Thiamine HCl 100 mg 01/30/17 22:00 02/03/17 21:26 Vitamin B1 - PO 100 mg HS LYLY Administration Current Side Effect: No Lab tests ordered: Yes Lab tests reviewed: Yes Provider note:: Patient will complete this program on 02/05/17. She has met his treatment goals and will continue to address her issues in outpatient treatment at [facility]. She verbalized understanding of the negative consequences of her addiction and acknowledging the need to change her lifestyle for her to get a shot at sobriety. She responded well to Belsomra 10 mg po HS prn for insomnia and Vistaril 50 mg po Q 4hrs prn for anxiety. She is stable for discharge on 02/05/17 Total face to face time:: 35 Mental Status Exam - Mental Status Exam Alert and Oriented to: Time, Place, Person Cognitive Function: Fair Patient Appearance: Well Groomed Mood: Hopeful, Euthymic Affect: Appropriate Patient Behavior: Cooperative Speech Pattern: Clear Voice Loudness: Normal Thought Process: Intact, Goal Oriented Thought Disorder: Not Present Hallucinations: Denies Suicidal Ideation: Denies Homicidal Ideation: Denies Insight/Judgement: Fair Sleep: Fair Appetite: Good Muscle strength/Tone: Normal Gait/Station: Normal Psychiatric Treatment Plan - Problem List (1) Opioid dependence Current Visit: Yes (2) Nicotine dependence Current Visit: No Qualifiers: Nicotine product type: cigarettes Substance use status: uncomplicated Qualified Code(s): F17.210 - Nicotine dependence, cigarettes, uncomplicated (3) Substance induced mood disorder Current Visit: Yes (4) Substance-induced sleep disorder Current Visit: Yes (5) Asthma Current Visit: No Qualifiers: Asthma severity: mild Asthma persistence: unspecified Asthma complication type: uncomplicated Qualified Code(s): J45.909 - Unspecified asthma, uncomplicated (6) Low back pain Current Visit: No Qualifiers: Chronicity: chronic Back pain laterality: midline Sciatica laterality: sciatica of right side Initial treatment plan: Patient will be discharged tomorrow and referred to [facility] for outpatient treatment
[2017-02-04] MEDS: THIAMINE HCL 100 MG TABLET (FP) PO SCH (21:25)
[2017-02-04] MEDS: SUVOREXANT 10 MG TABLET PO PRN (21:26)
[2017-02-05] MEDS: MAG HYDROX/ALH/SMC/DPHA/LIDO 240 ML MOUTHWASH MM SCH ×2 (06:19)
[2017-02-05 07:00] VITALS: BP 123/79; PULSE 76
[2017-02-05] MEDS: NAPROXEN 500 MG TABLET (FP) PO SCH (09:32)
[2017-02-05] MEDS: PRENATAL VITAMINS W/ FOLIC ACID TABLET (FP) PO SCH (09:32)
[2017-02-05] MEDS: PANTOPRAZOLE 40 MG TABLET (FP) PO SCH (09:32)
[2017-02-05] MEDS: hydrOXYzine PAMOATE 50 MG CAPSULE (FP) PO PRN (09:33)
[2017-02-05] MEDS: NICOTINE 21 MG/24 HOURS TOPICAL PATCH TD SCH (09:35)
== END 2017-02-05 09:45 | disposition home or self-care (01) | DRG 895 ==
LOC: Y3W 12:51
PROVIDERS: ADMIT Psychiatry & Neurology Psychiatry; ATTEND Psychiatry & Neurology Psychiatry
PROC: HZ42ZZZ Group Counseling for Substance Abuse Treatment, Cognitive-Behavioral (ICD-10-PCS; principal; 2017-01-30)
DX: F11.20 Opioid dependence, uncomplicated (principal); F19.282 Other psychoactive substance dependence with psychoactive substance-induced sleep disorder; F17.210 Nicotine dependence, cigarettes, uncomplicated; F19.24 Other psychoactive substance dependence with psychoactive substance-induced mood disorder; J45.909 Unspecified asthma, uncomplicated; M54.41 Lumbago with sciatica, right side; G89.29 Other chronic pain
CPT/HCPCS: 87070; 87430